=== PATIENT | male | born 1960 | race Two or more races ===

== ENCOUNTER 2024-02-17 10:35 | Emergency (ER) | payer MEDICAID, SELFPAY ==
[2024-02-17 10:47] VITALS: BP 163/90; PULSE 93; RESP 16; TEMP 36.8; O2SAT 98; BMI 23.8
--- NOTE | 2024-02-17 10:50 | XR_ITS ---
Examination: PA lateral chest 2 views TECHNIQUE: Upright PA lateral chest 2 views Exam date and time: February 17, 2024 10:58 AM INDICATIONS: Coughing beginning 5 days ago FINDINGS: Subtle nodular opacities in the left upper lobe Normal heart size Right lung clear IMPRESSION: Subtle nodular opacities in the left upper lobe which may represent pneumonia Follow-up chest imaging strongly recommend to document clearing and exclude underlying pulmonary masses
--- NOTE | 2024-02-17 13:25 | EDNOTE_ITS ---
Upper Respiratory Inf. RME/HPI General Chief Complaint: Flu Like Symptoms Stated Complaint: COUGHING X5 DAYS Time Seen by Provider: 02/17/24 10:40 Arrival date/time: 02/17/24 10:35 63-year-old male presents emergency department complaints of cough and congestion ongoing x 5 days patient reports no nausea no vomiting no chest pain no shortness of breath Limitations: no limitations Related Data Previous Rx's ?Medication ?Instructions ?Recorded azithromycin 500 mg tablet See Rx Instructions PO .COMPLEX #6 02/17/24 tabs benzonatate 100 mg capsule 100 mg PO TID #14 caps 02/17/24 Allergies Allergy/AdvReac Type Severity Reaction Status Date / Time No Known Allergies Allergy Verified 02/17/24 10:37 Review of Systems Review of Systems Systems Reviewed: All systems reviewed, normal except as documented Constitutional Constitutional: Reports system reviewed and no additional complaints, except as documented, Denies fever(s) and Denies headache(s) Eyes Eyes: Reports system reviewed and no additional complaints, except as documented and Denies blurry vision ENT Ears, Nose, Mouth, and Throat: Reports system reviewed and no additional complaints, except as documented, Denies headache(s), Reports nasal congestion and Reports nasal discharge Cardiovascular Cardiovascular: Reports system reviewed and no additional complaints, except as documented, Denies chest pain and Denies dyspnea Respiratory Respiratory: Reports system reviewed and no additional complaints, except as documented, Reports chest congestion, Reports cough and Denies dyspnea Gastrointestinal Gastrointestinal: Reports system reviewed and no additional complaints, except as documented and Denies abdominal pain Integumentary/Breasts Skin/Breast: Reports system reviewed and no additional complaints, except as documented and Denies rash Neurologic Neurologic: Reports system reviewed and no additional complaints, except as documented, Reports as per HPI and Denies headache(s) Past Medical History Social History SMOKING STATUS: Never smoker ED Exam General Limitations: Present no limitations General appearance: Present alert and in no apparent distress Head Head exam: Present atraumatic, normocephalic and normal inspection Eye Eye exam: Present normal appearance, PERRL and EOMI; Absent conjunctival injection ENT ENT exam: Present normal exam, normal oropharynx and mucous membranes moist Neck Neck exam: Present normal inspection, full ROM and trachea midline Chest Chest inspection: Present normal inspection and symmetric chest wall rise Respiratory Respiratory exam: Present normal lung sounds bilaterally; Absent respiratory distress Cardiovascular Cardiovascular exam: Present regular rate, normal rhythm and normal heart sounds Abdominal Exam Abdominal exam: Present soft and normal bowel sounds; Absent distention, tenderness, guarding, rebound or rigidity Extremities Exam Extremities exam: Present normal inspection and full ROM Back Exam Back exam: Present normal inspection and full ROM Neurological Exam Neurological exam: Present alert, oriented X3, CN II-XII intact, normal gait and reflexes normal; Absent motor sensory deficit Psychiatric Psychiatric exam: Present normal affect and normal mood Skin Skin exam: Present warm, dry, intact and normal color; Absent rash Course Quality Measures none Orders Category Date Time Status Bedside COVID-19 Antigen Test NOW Care 02/17/24 10:50 Completed Bedside Influenza A&B Antigen Test NOW Care 02/17/24 10:50 Completed XR chest 2V Stat Exams 02/17/24 10:50 Completed Vital Signs Vital signs: Vital Signs Temperature 98.2 F 02/17/24 10:47 Pulse Rate 93 02/17/24 10:47 Respiratory Rate 16 02/17/24 10:47 Blood Pressure 163/90 H 02/17/24 10:47 Pulse Oximetry (%) 98 02/17/24 10:47 Oxygen Delivery Method Room Air 02/17/24 10:47 O2 saturation 98% room air within normal limits Upper Respiratory Infection MDM Narrative MDM Narrative:: 63-year-old male presents emergency department complaints of cough and congestion ongoing x 5 days patient reports no nausea no vomiting no chest pain no shortness of breath On exam patient well-appearing patient's not appear ill or toxic in no acute distress On exam lungs are clear to auscultation Chest x-ray obtained as well as flu and COVID Flu and COVID both negative chest x-ray shows Subtle nodular opacities in the left upper lobe which may represent pneumonia Follow-up chest imaging strongly recommend to document clearing and exclude underlying pulmonary masses I explained these findings to the patient clearly patient given a course of antibiotics and cough medicine I explained to the patient that he should bring copy of his x-ray report to his primary care doctor request outpatient CT scan for further evaluation patient states clear understanding Patient data External records reviewed:: [facility] previous records Clinical information provided by:: patient Social determinants that could affect healthcare access:: none Patient has the following chronic illnesses:: See history How is presenting disease/condition affected by chronic disease/condition?: uneffected by Evaluation data The following diagnostics were reviewed and interpreted by me:: lab results and radiology exam(s) Lab and/or radiology exams considered but not ordered:: Labs radiology obtained Interpretation Summary: Reviewed by me Medications / Prescriptions Medications or Prescriptions considered but not ordered:: Given Medication administrations:: Given Rx Consultations Consultation(s) initiated? (list below): No Diagnosis Upper Respiratory Differential Diagnosis: upper respiratory infection, viral infection, bronchitis, pharyngitis and other (Malignancy) Most likely diagnosis given after review of the tests above:: Pneumonia Admission Indicated Admission indicated?: not indicated Admission Request Was there a request for admission?: No Disposition Plan Disposition Plan: Discharge Discharge Attestation Discharge Attestation: The patient and all family members were given an opportunity to ask questions and understood the discharge instructions. Discharge instructions specifically effects, indications for sooner follow up or return to the emergency department, and the expected course of current diagnosis. Patient condition: Stable Discharge Plan Plan Patient Disposition: HOME (Self Care) Disposition Comment: Stable Prescriptions/Referrals Prescriptions/Med Rec: New benzonatate 100 mg capsule 100 mg PO TID Qty: 14 0RF azithromycin 500 mg tablet See Rx Instructions .ROUTE .COMPLEX Qty: 6 0RF Rx Instructions: take 500 mg today (day 1), then 250 mg for 4 days (days 2-5) Referrals: Shekhar Samuels MD [Primary Care Provider] - 02/18/24 Problem List Clinical Impression: Opacity of lung on imaging study Patient/Caregiver Discharge Instructions Additional Instructions: Please take antibiotics as prescribed please bring a copy of your x-ray report your primary care doctor request outpatient CT scan after your antibiotic treatment is finished Print Language: Kyrgyz Stand Alone Forms: Marline Award Info., Patient Portal Info Letter PA/[employer]INC[employer]CHITECT Supervising Physician PA/AIDEE Supervising Physician: Dr Chadd HOLLOWAY Attestation Attestation The patient was seen by the midlevel practitioner. I, the co-signing physician, was present during the entire ER visit. While I did not physically examine the patient, I was available for consultation as needed.
== END 2024-02-17 14:45 | disposition home or self-care (01) ==
PROVIDERS: Emergency Provider Emergency Medicine; PCP Family Medicine
DX: J98.4 Other disorders of lung (principal)
CPT/HCPCS: 71046; 87400; 87811; 99283